=== PATIENT | male | born 1955 | race Caucasian/White ===

== ENCOUNTER 2017-02-03 19:59 | Emergency (ER) | payer SELFPAY ==
[~2017-02-03] VITALS: Ht 165.1 cm; Wt 62.4 kg
[2017-02-03 20:27] VITALS: BP 130/80; PULSE 74; RESP 20; TEMP 98.1; O2SAT 99
[2017-02-03 21:35] VITALS: BP 138/80; PULSE 74; RESP 20; TEMP 98.1; O2SAT 96
[2017-02-03] MEDS ORDERED: FLUORESCEIN SOD 1 MG STRIP EACH EYE ONE (21:45)
[2017-02-03] MEDS ORDERED: PROPARACAINE HCL 0.5% OPHT SOLN 15 ML BTL EACH EYE ONE (21:45)
[2017-02-03] MEDS ORDERED: OXYC15TA PO (21:49)
[2017-02-03] MEDS ORDERED: LISI10TA3 PO (21:49)
[2017-02-03] MEDS ORDERED: CIPR0.3S2 EACH EYE (22:06)
--- NOTE | 2017-02-03 22:07 | PD ---
HPI Chief Complaint: Foreign Body Time Seen by Provider: 21:25 Travel History International Travel<30 days: No Contact w/Intl Traveler<30days: No Traveled to known affect area: No History of Present Illness HPI The patient's 61 years old. He reports that about 10 hours ago he felt a particle of debris in his right eye. It has been there since. It is quite painful at times. It's worse with movement of the eye. He has some blurred vision and tearing in the right eye. He reports a history of same. Onset sudden. PFSH Past Medical History Diminished Hearing: No Hypertension: Yes Neurologic: Yes (Spinal Stenosis) Tetanus Vaccination: < 5 Years Influenza Vaccination: No ?: Not Past Surgical History Thoracic Surgery: Yes (inguinal hernia) Other Surgery: Yes (hemaroidectomy) Social History Alcohol Use: Yes (occasionally) Tobacco Use: No Substance Use: No Allergies-Medications (Allergen,Severity, Reaction): Coded Allergies: No Known Allergies (Unverified , 02/03/17) Reported Meds & Prescriptions Reported Meds & Active Scripts Active Ciprofloxacin Opth Drops (Ciprofloxacin HCl) 0.3% Soln 2 Drop EACH EYE Q4H 7 Days while awake x 5 days. Reported Oxycodone (Oxycodone HCl) 15 Mg Tab 15 Mg PO Q4H PRN Lisinopril 10 Mg Tab 10 Mg PO DAILY Review of Systems General / Constitutional: No: Fever Physical Exam Narrative GENERAL: 89-year-old male pleasant well-nourished well-developed SKIN: Focused skin assessment warm/dry. HEAD: Atraumatic. Normocephalic. EYES: Pupils equal and round. No scleral icterus. No injection or drainage. There is a minute focus of debris in the region of the iris of the right eye. NEUROLOGICAL: Awake and alert. No obvious cranial nerve deficits. Motor grossly within normal limits. Normal speech. Data Data Last Documented VS Vital Signs Date Time Temp Pulse Resp B/P Pulse Ox O2 Delivery O2 Flow Rate FiO2 02/03/17 21:35 98.1 74 20 138/80 96 Vital signs reviewed Orders Proparacaine 0.5% Opth Soln (Alcaine 0.5 (02/03/17 21:45) Fluorescein Strip ([id number] A.T.) (02/03/17 21:45) Ciprofloxacin 0.3% Opth Soln (Ciloxan 0. (02/03/17 22:15) [facility] Medical Decision Making Medical Screen Exam Complete: Yes Emergency Medical Condition: Yes Medical Record Reviewed: Yes Differential Diagnosis Corneal abrasion, rust ring, foreign body in the eye Narrative Course The eye was numbed with proparacaine. Fluorescein strip was performed. A 27-gauge needle was employed to remove the foreign body. An underlying corneal abrasion was observed approx 2mm in diameter. The patient was sent home with the ciprofloxacin drops. He'll follow up with Dr. Higgins of ophthalmology. His last tetanus shot was 3 years prior. Procedures Procedure Narrative Foreign body to eye was removed after anesthesia was achieved with proparacaine , 27-gauge needle. Underlying corneal abrasion observed after foreign body removal. Diagnosis Primary Impression: Foreign body in cornea Qualified Code: T15.01XA - Foreign body in cornea, right, initial encounter Additional Impression: Corneal abrasion Qualified Code: S05.01XA - Corneal abrasion, right, initial encounter Referrals: Inez Higgins MD 1 day Additional Instructions: You have a choice when it comes to health care, and we are glad that you chose [facility]. Hopefully, we have met your expectations on today's visit. You are welcome to return to [facility] at any time, as we are committed to meeting the health care needs of our community. Med/Other Pt SpecificInfo: Prescription(s) given Scripts Ciprofloxacin Opth Drops 0.3% Soln2 Drop EACH EYE Q4H 7 Days Ref 0 while awake x 5 days. Prov:Jean Pierre Amaya MD 02/03/17 Disposition: 01 DISCHARGE HOME Condition: Stable Jean Pierre Amaya MD Feb 03, 2017 22:07
[2017-02-03] MEDS ORDERED: CIPROFLOXACIN 0.3% OPTH SOLN 2.5 ML BTL RIGHT EYE ONE (22:15)
== END 2017-02-03 22:22 | disposition home or self-care (01) ==
LOC: PHED 19:59 → PHEFT 22:22
DX: T15.91XA Foreign body on external eye, part unspecified, right eye, initial encounter (principal); S05.01XA Injury of conjunctiva and corneal abrasion without foreign body, right eye, initial encounter; I10 Essential (primary) hypertension
CPT/HCPCS: 65220